=== PATIENT | female | born 1990 | race Caucasian/White ===

== ENCOUNTER 2017-12-02 14:56 | Inpatient (IN) | payer OTHER ==
[~2017-12-02] VITALS: Ht 162.6 cm; Wt 56.2 kg
[2017-12-02] MEDS ORDERED: PRENATAL TABLE1 EAC1 PO (18:07)
[2017-12-07] MEDS ORDERED: MAXFE CAPLET1 EACH PO (07:47)
[2017-12-07] MEDS ORDERED: CEFADROXIL1 GM PO (07:48)
== END 2017-12-07 10:54 | DRG 781 ==
LOC: LDR 14:56 → OB/GYN 12-04 11:40
PROC: BY4DZZZ Ultrasonography of Second Trimester, Multiple Gestation (ICD-10-PCS; principal; 2017-12-02)
PROC: BW40ZZZ Ultrasonography of Abdomen (ICD-10-PCS; 2017-12-02)
PROC: BT43ZZZ Ultrasonography of Bilateral Kidneys (ICD-10-PCS; 2017-12-02)
PROC: 4A1HXCZ Monitoring of Products of Conception, Cardiac Rate, External Approach (ICD-10-PCS; 2017-12-02)
DX: O23.32 Infections of other parts of urinary tract in pregnancy, second trimester (principal); B96.29 Other Escherichia coli [E. coli] as the cause of diseases classified elsewhere; O30.002 Twin pregnancy, unspecified number of placenta and unspecified number of amniotic sacs, second trimester

== ENCOUNTER 2017-12-30 13:29 | Outpatient (CLI) | payer OTHER ==
[~2017-12-30 13:29] MED LIST: CEFADROXIL1 GM PO; MAXFE CAPLET1 EACH PO; PRENATAL TABLE1 EAC1 PO
== END 2017-12-30 16:36 | disposition still patient (30) ==
LOC: NST 13:29
DX: O30.002 Twin pregnancy, unspecified number of placenta and unspecified number of amniotic sacs, second trimester (principal); Z34.02 Encounter for supervision of normal first pregnancy, second trimester

== ENCOUNTER 2017-12-30 15:08 | Outpatient (CLI) | payer OTHER | END 2017-12-30 17:04 | disposition home or self-care (01) | LOC: OBS/DEL 15:08 | DX: O23.42 Unspecified infection of urinary tract in pregnancy, second trimester (principal); O30.002 Twin pregnancy, unspecified number of placenta and unspecified number of amniotic sacs, second trimester; O60.02 Preterm labor without delivery, second trimester; Z34.02 Encounter for supervision of normal first pregnancy, second trimester ==

== ENCOUNTER 2018-01-27 13:51 | Outpatient (CLI) | payer OTHER | END 2018-01-27 17:38 | disposition home or self-care (01) | LOC: NST 13:51 | DX: O30.003 Twin pregnancy, unspecified number of placenta and unspecified number of amniotic sacs, third trimester (principal); Z34.83 Encounter for supervision of other normal pregnancy, third trimester ==

== ENCOUNTER 2018-02-02 13:16 | Outpatient (CLI) | payer OTHER | END 2018-02-02 14:47 | disposition home or self-care (01) | LOC: NST 13:16 | DX: O30.003 Twin pregnancy, unspecified number of placenta and unspecified number of amniotic sacs, third trimester (principal); Z34.83 Encounter for supervision of other normal pregnancy, third trimester ==

== ENCOUNTER → 2018-02-23 | Outpatient (CLI) | payer OTHER | END | disposition home or self-care (01) | LOC: NST 13:27 | DX: O30.003 Twin pregnancy, unspecified number of placenta and unspecified number of amniotic sacs, third trimester (principal); Z34.03 Encounter for supervision of normal first pregnancy, third trimester ==

== ENCOUNTER 2018-03-11 12:41 | Outpatient (CLI) | payer OTHER ==
[~2018-03-11 12:41] MED LIST changes: -PRENATAL TABLE1 EAC1 PO
== END 2018-03-11 13:20 | disposition home or self-care (01) ==
LOC: NST 12:41
DX: O30.003 Twin pregnancy, unspecified number of placenta and unspecified number of amniotic sacs, third trimester (principal); Z34.93 Encounter for supervision of normal pregnancy, unspecified, third trimester

== ENCOUNTER 2018-03-11 14:15 | Inpatient (IN) | payer OTHER ==
[~2018-03-11] VITALS: Ht 162.6 cm; Wt 2.3 kg
[2018-03-17] MEDS ORDERED: PRENATAL TABLE1 EAC1 PO (07:24)
== END 2018-03-20 14:52 | DRG 765 ==
LOC: O/R 03-17 06:46 → OB/GYN 03-17 06:46 → LDR 03-17 14:15 → OB/GYN 03-17 19:45
PROVIDERS: Obstetrics & Gynecology Maternal & Fetal Medicine
PROC: 4A1HXCZ Monitoring of Products of Conception, Cardiac Rate, External Approach (ICD-10-PCS; 2018-03-17)
PROC: 10D00Z1 Extraction of Products of Conception, Low, Open Approach (ICD-10-PCS; principal; 2018-03-17 15:45)
DX: O64.1XX2 Obstructed labor due to breech presentation, fetus 2 (principal); O30.043 Twin pregnancy, dichorionic/diamniotic, third trimester; Z3A.37 37 weeks gestation of pregnancy; Z37.2 Twins, both liveborn